=== PATIENT | male | born 1985 | race Caucasian/White ===

== ENCOUNTER → 2018-06-22 | Outpatient (CLI) | payer BC ==
--- NOTE | 2018-06-23 11:59 | RADIOLOGY REPORT (SQ) ---
EXAM DESCRIPTION: MRI LT LOWER JOINT WITHOUT COMPLETED DATE/TIME: 06/22/2018 7:45 pm REASON FOR STUDY: M25.562 PAIN IN LEFT KNEE M25.562 PAIN IN LEFT KNEE COMPARISON: None. TECHNIQUE: Leftknee images acquired and stored on PACS. Multiplanar images include fat sensitive se quences as T1, water sensitive sequences as FST2 or STIR, cartilage sensitive sequences as FSPD, and gradient echo sequences. LIMITATIONS: None. FINDINGS: JOINT AND BURSAE: Joint effusion. BONE CORTEX AND MARROW: No alteration of signal to suggest marrow replacement. No worrisome bone lesi ons. No occult fracture. ACL: Intact. No degeneration or ganglion cyst. PCL: Intact. MCL: Intact. No periligamentous edema or fluid. LCL: Thickening of the femoral attachment. Intermediate T2 signal. MEDIAL MENISCUS: Increased T2 signal posterior horn extending to the articular surface in the horizon eric and oblique vertical plane. No displaced meniscal fragment. LATERAL MENISCUS: There is increased signal in the posterolateral corner between the arcuate ligament and the posterior horn, and between the arcuate ligament and the posterolateral joint capsule. No d efinitive capsular separation. Popliteus is intact. MEDIAL COMPARTMENT: Cartilage preserved. No bone bruises or reactive marrow edema. No osteophytes. LATERAL COMPARTMENT: Cartilage preserved. No bone bruises or reactive marrow edema. No osteophytes. PATELLA: No chondromalacia. No subchondral cysts. Medial and lateral retinacula intact. EXTENSOR MECHANISM: Intact. Quadriceps and patella tendons normal. SOFT TISSUES: Adjacent muscles and subcutaneous tissues normal. Normal flow void in popliteal artery and vein. OTHER: No other significant finding. IMPRESSION: 1. Proximal lateral collateral ligament sprain. 2. Increased signal in the posterolateral corner on either side of the arcuate ligament without defin itive meniscal tear or capsular separation. 3. Large joint effusion. TECHNICAL DOCUMENTATION: JOB ID: [id number] [employer]- All Rights Reserved Reading location - IP/workstation name: [email or web address]
== END ==
LOC: RAD 19:40
PROVIDERS: ATTEND Orthopaedic Surgery Sports Medicine
DX: M25.562 Pain in left knee (principal)